=== PATIENT | male | born 1990 ===

== ENCOUNTER 2018-08-21 14:19 | Emergency (ER) | payer BC ==
[2018-08-21 14:31] VITALS: RESP 18
[2018-08-21] MEDS ORDERED: Sodium Chloride 0.9% 1,000 ML IV STA (15:11)
--- NOTE | 2018-08-21 15:20 | ED PDOC ---
HPI: Abdomen Time Seen by Provider: 08/21/18 14:33 Chief Complaint (Nursing): Chest Pain Chief Complaint (Provider): Chest Pain History Per: Patient History/Exam Limitations: no limitations Onset/Duration Of Symptoms: Hrs Current Symptoms Are (Timing): Still Present Additional Complaint(s): 28 y/o male presents to the ED complaining of epigastric abdominal pain that ra diated to the midsternal chest. Patient reports pain occurred while driving today at 1 PM. Patient described pain as sudden and as feeling like a twisting sensation that radiates to the back. Patient reports he recently traveled back from [place] for work and typically travels once a month. Patient notes of having breakfast at 6 AM and felt okay at that time. 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 Patient additionally reports of mild shortness of breath due to pain. Otherwise, patient denies lower extremity pain and swelling, fever, nausea at this time, dizziness, headache, neck pain and upper extremity pain. PMD: none provided Past Medical History Reviewed: Historical Data, Nursing Documentation, Vital Signs Vital Signs: Last Vital Signs Temp 98.5 F 08/21/18 14:25 Pulse 68 08/21/18 14:25 Resp 18 08/21/18 14:25 BP 113/68 08/21/18 14:25 Pulse Ox 100 08/21/18 14:25 - Medical History PMH: Hyperthyroidism - Surgical History Surgical History: No Surg Hx - Family History Family History: States: Unknown Family Hx - Home Medications Home Medications: Ambulatory Orders Medication Instructions Recorded Famotidine [Pepcid] 40 mg PO DAILY #30 tablet 08/21/18 - Allergies Allergies/Adverse Reactions: Allergies Allergy/AdvReac Type Severity Reaction Status Date / Time No Known Allergies Allergy Verified 08/21/18 14:25 Review of Systems ROS Statement: Except As Marked, All Systems Reviewed And Found Negative Constitutional: Negative for: Fever Cardiovascular: Positive for: Chest Pain Respiratory: Positive for: Shortness of Breath Gastrointestinal: Positive for: Vomiting, Abdominal Pain. Negative for: Nausea Musculoskeletal: Negative for: Neck Pain, Arm Pain, Leg Pain Neurological: Negative for: Headache, Dizziness Physical Exam - Reviewed Nursing Documentation Reviewed: Yes Vital Signs Reviewed: Yes - Physical Exam Appears: Positive for: Well, No Acute Distress Head Exam: Positive for: NORMAL INSPECTION Skin: Positive for: Normal Color, Warm, DRY Eye Exam: Positive for: EOMI, Normal appearance, PERRL ENT: Positive for: Normal ENT Inspection Neck: Positive for: Normal, Painless ROM Cardiovascular/Chest: Positive for: Regular Rate, Rhythm Respiratory: Positive for: Normal Breath Sounds (clear to auscultation bilaterally) Gastrointestinal/Abdominal: Positive for: Tenderness (epigastric and RUQ tender ness. (+) Giron's Sign ). Negative for: Mass, Distended, Guarding, Rebound Back: Negative for: L CVA Tenderness, R CVA Tenderness Extremity: Negative for: Swelling, Other (Jacky's sign) Neurological/Psych: Positive for: Awake, Alert, Normal Tone, Oriented - Laboratory Results Result Diagrams: 08/21/18 15:25 08/21/18 15:25 - ECG O2 Sat by Pulse Oximetry: 100 (RA) Pulse Ox Interpretation: Normal Medical Decision Making Medical Decision Making: Time: 1510 Plan: -- EKG -- CMP -- Lipase -- Troponin I -- CBC with Differentials -- D Dimer -- CXR Two Views -- Sodium Chloride IV 1000 mls/hr -- Pepcid 20 mg IVP -- IV Insertion -- Urinalysis -- US Abdomen Limited Time: 1553 CXR RESULTS HISTORY: Chest pain COMPARISON: No prior. TECHNIQUE: Chest PA and lateral views FINDINGS: LUNGS: No active pulmonary disease. PLEURA: No significant pleural effusion identified. No pneumothorax apparent. CARDIOVASCULAR: No aortic atherosclerotic calcification present. Normal cardiac size. No pulmonary vascular congestion. OSSEOUS STRUCTURES: No significant abnormalities. VISUALIZED UPPER ABDOMEN: Normal. OTHER FINDINGS: None. IMPRESSION: No active disease. 17:12 FINDINGS: LIVER: Measures liver is enlarged measuring approximately 23 cm in CC dimension. Liver exhibits smooth contour though increased echotexture likely due to fatty infiltration however other infiltrative hepatocellular disease process not excluded. No mass. No intrahepatic bile duct dilatation. GALLBLADDER: Cholelithiasis. No sonographic Giron sign COMMON BILE DUCT: Measures 6.5 mm. No stones. No dilatation. PANCREAS: Pancreas is poorly delineated due to body habitus and overlying bowel gas. RIGHT KIDNEY: Measures 13.0 x 5.7 x 5.6 cm in length. Normal echogenicity. No calculus, mass, or hydronephrosis. AORTA: No aneurysmal dilatation. IVC: Unremarkable. OTHER FINDINGS: None . IMPRESSION: Cholelithiasis. Common bile duct measures approximately 6.5 mm no evidence of sonographic Giron sign. Hepatomegaly with suspected fatty infiltration although other infiltrative hepatocellular disease process not excluded. Scribe Attestation: Documented by Dory Montez, acting as a scribe Long Asif NP. Provider Scribe Attestation: All medical record entries made by the Scribe were at my direction and personally dictated by me. I have reviewed the chart and agree that the record accurately reflects my personal performance of the history, physical exam, medical decision making, and the department course for this patient. I have also personally directed, reviewed, and agree with the discharge instructions and disposition. Disposition - Clinical Impression Clinical Impression: Cholelithiasis - Patient ED Disposition Is Patient to be Admitted: No - Disposition Referrals: Garett Bucio MD [Staff Provider] - Disposition: Routine/Home Disposition Time: 17:54 Condition: IMPROVED Additional Instructions: Follow-up with PMD in 2-3 weeks. Prescriptions: Famotidine [Pepcid] 40 mg PO DAILY #30 tablet Instructions: Gallstones (DC) Print Language: FAROESE - POA Present On Arrival: None
[2018-08-21 15:31] LABS: BASO % 0.3 % (0.0-2.0); EOS # 0.1 K/uL (0.0-0.7); EOS % 0.9 % (0.0-4.0); HEMOGLOBIN 13.6 g/dL (12.0-18.0); LYMPH # 0.9 K/uL (1.0-4.3); LYMPH % 6.7 % (20.0-40.0); MEAN CELL VOLUME 95.2 fl (80.0-94.0); MEAN CORPUSCULAR HEMOGLOBIN 31.4 pg (27.0-31.0); MEAN CORPUSCULAR HGB CONC 32.9 g/dL (33.0-37.0); MEAN PLATELET VOLUME 8.8 fl (7.2-11.7); MONO # 1.3 K/uL (0.0-0.8); MONO % 10.2 % (0.0-10.0); NEUT # 10.4 K/uL (1.8-7.0); NEUT % 81.9 % (50.0-75.0); PLATELET COUNT 238 K/uL (130-400); RBC 4.33 Mil/uL (4.40-5.90); RED CELL DISTRIBUTION WIDTH 14.1 % (11.5-14.5); WHITE BLOOD COUNT 12.6 K/uL (4.8-10.8)
[2018-08-21 15:43] LABS: ALB/GLOB RATIO 1.3 (1.0-2.1); ALBUMIN 4.7 g/dL (3.5-5.0); BLOOD UREA NITROGEN 12 mg/dl (9-20); CALCIUM 9.5 mg/dL (8.4-10.2); GFR NON-AFRICAN AMERICAN > 60; LIPASE 68 U/L (23-300)
[2018-08-21 15:45] LABS: ALT/SGPT 221 U/L (21-72); AST/SGOT 382 U/L (17-59)
--- NOTE | 2018-08-21 15:58 | RAD ---
Date of service: 08/21/2018 HISTORY: Chest pain COMPARISON: No prior. TECHNIQUE: Chest PA and lateral views FINDINGS: LUNGS: No active pulmonary disease. PLEURA: No significant pleural effusion identified. No pneumothorax apparent. CARDIOVASCULAR: No aortic atherosclerotic calcification present. Normal cardiac size. No pulmonary vascular congestion. OSSEOUS STRUCTURES: No significant abnormalities. VISUALIZED UPPER ABDOMEN: Normal. OTHER FINDINGS: None. IMPRESSION: No active disease.
[2018-08-21 16:32] LABS: BANDS 2 % (0-2); LYMPHOCYTE 8 % (20-50); MONOCYTE 11 % (0-10); NEUTROPHIL 79 % (42-75); PLATELET ESTIMATE NORMAL (NORMAL); TOTAL CELLS COUNTED 100
--- NOTE | 2018-08-21 17:24 | US ---
Date of service: 08/21/2018 HISTORY: Right upper quadrant abdominal pain COMPARISON: None. TECHNIQUE: Sonographic evaluation of the right upper quadrant of the abdomen. FINDINGS: LIVER: Measures liver is enlarged measuring approximately 23 cm in CC dimension. Liver exhibits smooth contour though increased echotexture likely due to fatty infiltration however other infiltrative hepatocellular disease process not excluded. No mass. No intrahepatic bile duct dilatation. GALLBLADDER: Cholelithiasis. No sonographic Giron sign COMMON BILE DUCT: Measures 6.5 mm. No stones. No dilatation. PANCREAS: Pancreas is poorly delineated due to body habitus and overlying bowel gas. RIGHT KIDNEY: Measures 13.0 x 5.7 x 5.6 cm in length. Normal echogenicity. No calculus, mass, or hydronephrosis. AORTA: No aneurysmal dilatation. IVC: Unremarkable. OTHER FINDINGS: None . IMPRESSION: Cholelithiasis. Common bile duct measures approximately 6.5 mm no evidence of sonographic Giron sign. Hepatomegaly with suspected fatty infiltration although other infiltrative hepatocellular disease process not excluded.
[2018-08-21 18:13] VITALS: BP 132/70; PULSE 73; TEMP 98.2
[2018-08-21 18:30] VITALS: O2SAT 100
--- NOTE | 2018-08-22 09:10 | CARD ---
APPROVED REPORT Date of service: 08/21/2018 EKG Measurement Heart [id number] OR 150P-3 [id number] <Conclusion> Normal sinus rhythm with sinus arrhythmia Normal ECG
== END 2018-08-21 18:18 | disposition home or self-care (01) ==
LOC: H.ER 14:19
DX: K80.20 Calculus of gallbladder without cholecystitis without obstruction (principal); E05.90 Thyrotoxicosis, unspecified without thyrotoxic crisis or storm
CPT/HCPCS: 71046; 76705; 80053; 83690; 84484; 85025; 85378; 93005; 96361; 96374; 99283; J7030